=== PATIENT | female | born 1980 | race African-American/Black ===

== ENCOUNTER 2018-03-13 22:40 | Emergency (ER) | payer SELFPAY ==
[~2018-03-13] VITALS: Ht 167.6 cm; Wt 68.2 kg
[2018-03-13] MEDS ORDERED: SERT50TA12 PO (23:23)
[2018-03-13] MEDS ORDERED: QUET25TA PO (23:23)
[2018-03-13 23:37] LABS: BASOPHILS % (AUTO) 0.1 % (0.0-2.0); EOSINOPHILS % (AUTO) 2.9 % (1.0-6.0); HEMATOCRIT 29.1 % (36-46); HEMOGLOBIN 9.3 g/dL (12.0-16.0); LYMPHOCYTES # (AUTO) 3.1 K/uL (1.0-4.8); MEAN CORPUSCULAR HEMOGLOBIN 22.4 pg (26.0-34.0); MEAN CORPUSCULAR VOLUME 70 fL (80-100); MONOCYTES # (AUTO) 0.7 K/uL (0.1-1.0); MONOCYTES % (AUTO) 9.1 % (2.0-9.0); NEUTROPHILS # (AUTO) 3.2 K/uL (1.8-7.7); NEUTROPHILS % (AUTO) 44.9 % (40.0-70.0); PLATELET COUNT (AUTO) 338 K/uL (150-450); RED BLOOD CELL COUNT(AUTO) 4.16 MIL/uL (4.00-5.20); RED CELL DISTRIBUTION WIDTH 18.3 % (11.5-14.5)
[2018-03-13 23:46] LABS: ANION GAP 7 mmol/L (8-16); CALCIUM, TOTAL 8.4 mg/dL (8.8-10.5); CARBON DIOXIDE 29 mmol/L (22-29); CHLORIDE 104 mmol/L (98-107); CREATININE 0.84 mg/dL (0.60-1.30); GLOMERULAR FILTR. RATE CALC > 60 mL/min (>60); GLUCOSE,RANDOM 97 mg/dL (70-110); POTASSIUM 3.8 mmol/L (3.5-5.1); SODIUM SERUM 140 mmol/L (136-145); UREA NITROGEN, BLOOD 8 mg/dL (7-18)
[2018-03-13 23:52] LABS: ALANINE AMINOTRANSFERASE 23 U/L (12-78); ALBUMIN 3.7 g/dL (3.4-5.0); ALKALINE PHOSPHATASE 106 U/L (46-116); ASPARTATE AMINOTRANSFERASE 24 U/L (15-37); BILIRUBIN,TOTAL 0.2 mg/dL (0.1-1.0); TOTAL PROTEIN, SERUM 8.1 g/dL (6.4-8.2)
[2018-03-14 00:03] LABS: PLATELET MORPHOLOGY COMMENT GIANT PLTS PRESENT
[2018-03-14] MEDS ORDERED: HALOPERIDOL 5 MG TABLET PO ONE (00:15)
[2018-03-14 05:40] VITALS: BP 120/79
== END 2018-03-14 06:02 | disposition home or self-care (01) ==
LOC: EMS 22:41
DX: R45.851 Suicidal ideations (principal); R44.0 Auditory hallucinations; F10.129 Alcohol abuse with intoxication, unspecified; F17.210 Nicotine dependence, cigarettes, uncomplicated; Y90.8 Blood alcohol level of 240 mg/100 ml or more
CPT/HCPCS: 36415; 80053; 84703; 85025; 99285; G0480

== ENCOUNTER 2021-09-05 11:58 | Inpatient (IN) | payer MEDICAID ==
[~2021-09-05] VITALS: Ht 167.6 cm; Wt 68.0 kg
[~2021-09-05 11:58] MED LIST: QUET25TA PO; SERT-158 PO
[2021-09-05] MEDS ORDERED: SODIUM CHLORIDE 0.9% 1,000 ML IV ONE (13:30)
[2021-09-05 15:15] LABS: BASOPHILS % (AUTO) 0.2 % (0.0-2.0); EOSINOPHILS % (AUTO) 0.1 % (1.0-6.0); HEMOGLOBIN 10.5 g/dL (12.0-16.0); LYMPHOCYTES # (AUTO) 0.7 K/uL (1.0-4.8); LYMPHOCYTES % (AUTO) 8.1 % (22.0-44.0); MEAN CORPUSCULAR HEMOGLOBIN 23.8 pg (26.0-34.0); MEAN CORPUSCULAR HGB CONC 31.8 G/dL (31.0-37.0); MEAN CORPUSCULAR VOLUME 75 fL (80-100); MONOCYTES # (AUTO) 0.3 K/uL (0.1-1.0); MONOCYTES % (AUTO) 3.2 % (2.0-9.0); NEUTROPHILS # (AUTO) 7.9 K/uL (1.8-7.7); PLATELET COUNT (AUTO) 202 K/uL (150-450); RED BLOOD CELL COUNT(AUTO) 4.41 MIL/uL (4.00-5.20); RED CELL DISTRIBUTION WIDTH 19.6 % (11.5-14.5)
[2021-09-05 15:17] LABS: NEUTROPHILS % (AUTO) 88.4 % (40.0-70.0)
[2021-09-05 15:17] LABS: COVID AG,FIA SOURCE NASOPHARYNGEAL
[2021-09-05 15:29] LABS: ANION GAP 22 mmol/L (8-16); CALCIUM, TOTAL 8.8 mg/dL (8.8-10.5); CARBON DIOXIDE 19 mmol/L (22-29); CHLORIDE 94 mmol/L (98-107); CREATININE 0.83 mg/dL (0.60-1.30); GLOMERULAR FILTR. RATE CALC > 60 mL/min (>60); GLUCOSE,RANDOM 81 mg/dL (70-110); POTASSIUM 3.8 mmol/L (3.5-5.1); SODIUM SERUM 135 mmol/L (136-145); UREA NITROGEN, BLOOD 8 mg/dL (7-18)
[2021-09-05 15:40] LABS: ALANINE AMINOTRANSFERASE 52 U/L (12-78); ALBUMIN 3.6 g/dL (3.4-5.0); ALKALINE PHOSPHATASE 118 U/L (46-116); ASPARTATE AMINOTRANSFERASE 56 U/L (15-37); BILIRUBIN,TOTAL 0.9 mg/dL (0.1-1.0); HCG,QUANTITATIVE < 1 mIU/mL (0-6); TOTAL PROTEIN, SERUM 8.5 g/dL (6.4-8.2)
[2021-09-05 15:42] LABS: AMPHET/METH SCREEN,URINE POSITIVE (NEGATIVE); BARBITURATE SCREEN, URINE NEGATIVE (NEGATIVE); BENZODIAZEPINES SCREEN,URINE NEGATIVE (NEGATIVE); CANNABINOID SCREEN,URINE NEGATIVE (NEGATIVE); COCAINE SCREEN,URINE NEGATIVE (NEGATIVE); METHADONE SCREEN, URINE NEGATIVE (NEGATIVE); OPIATE SCREEN,URINE NEGATIVE (NEGATIVE)
[2021-09-05 15:45] LABS: PHENCYCLIDINE SCREEN,URINE NEGATIVE (NEGATIVE)
[2021-09-05] MEDS: LORazepam 2 MG TABLET PO PRN ×2 (17:20→21:23)
[2021-09-05 20:48] VITALS: BP 126/77
[2021-09-06 01:18] VITALS: BP 124/79
[2021-09-06 07:56] LABS: CHOL/HDL RATIO 2.2 (3.9-5.7)
[2021-09-06 08:50] VITALS: BP 112/67
[2021-09-06] MEDS: LORazepam 2 MG TABLET PO PRN ×2 (12:24→19:56)
[2021-09-06] MEDS ORDERED: ACETAMINOPHEN 650 MG/20.3 ML SOLUTION UDCUP PO PRN (12:45)
[2021-09-06] MEDS ORDERED: ACETAMINOPHEN 325 MG TABLET PO PRN ×2 (13:45→14:00)
[2021-09-06] MEDS ORDERED: CloNIDine HCL 0.1 MG TABLET PO PRN (13:45)
[2021-09-06] MEDS ORDERED: LOPERAMIDE HCL 2 MG CAPSULE PO PRN (13:45)
[2021-09-06] MEDS ORDERED: ONDANSETRON HCL 4 MG TABLET PO PRN (13:45)
[2021-09-06] MEDS ORDERED: MAG HYDROX/AL HYDROX/SIMETH ES 30 ML SUSPENSION UDCUP PO PRN (13:45)
[2021-09-06] MEDS ORDERED: ALBUTEROL SULFATE HFA 90 MCG/PUFF 8 GM INHALER IH PRN (13:45)
[2021-09-06] MEDS ORDERED: GuaiFENesin/D-METHORPHAN [SUGAR-FREE] 200-20MG/10 ML SYRUP UDCUP PO PRN (13:45)
[2021-09-06] MEDS ORDERED: DOCUSATE SODIUM 100 MG CAPSULE PO PRN (13:45)
[2021-09-06] MEDS ORDERED: MAGNESIUM HYDROXIDE SUSPENSION 30 ML UDCUP PO PRN (13:45)
[2021-09-06] MEDS ORDERED: PETROLATUM,WHITE 28 GM JELLY TP PRN (13:45)
[2021-09-06] MEDS ORDERED: NICOTINE 14 MG/24 HOUR PATCH TD PRN (13:45)
[2021-09-06] MEDS: IBUPROFEN 400 MG TABLET PO PRN (15:58)
[2021-09-06] MEDS ORDERED: IBUPROFEN 400 MG TABLET PO SCH (16:00)
[2021-09-06 16:02] VITALS: BP 108/65
[2021-09-06 19:56] VITALS: BP 117/79
[2021-09-06] MEDS: MIRTAZAPINE 15 MG TABLET PO SCH (20:06)
[2021-09-07 00:55] VITALS: BP 118/69
[2021-09-07 08:34] VITALS: BP 107/60
[2021-09-07] MEDS: LORazepam 2 MG TABLET PO PRN ×2 (13:27→20:32)
[2021-09-07 16:29] VITALS: BP 107/70
[2021-09-07] MEDS: MIRTAZAPINE 15 MG TABLET PO SCH (20:25)
[2021-09-08 00:50] VITALS: BP 123/74
[2021-09-08 08:17] VITALS: BP 113/78
[2021-09-08] MEDS: IBUPROFEN 400 MG TABLET PO PRN ×2 (10:08→20:34)
[2021-09-08] MEDS: LORazepam 2 MG TABLET PO PRN (10:08)
[2021-09-08] MEDS: GABAPENTIN 100 MG CAPSULE PO SCH ×3 (12:54→20:33)
[2021-09-08 16:28] VITALS: BP 112/64
[2021-09-08] MEDS: MIRTAZAPINE 15 MG TABLET PO SCH (20:33)
[2021-09-08 20:34] VITALS: BP 117/72
[2021-09-08] MEDS: ZOLPIDEM TARTRATE 10 MG TABLET PO PRN (20:46)
[2021-09-09 01:21] VITALS: BP 105/61
[2021-09-09 08:32] VITALS: BP 110/70
[2021-09-09] MEDS: GABAPENTIN 100 MG CAPSULE PO SCH ×3 (09:46→20:31)
[2021-09-09] MEDS: HALOPERIDOL 5 MG TABLET PO PRN ×2 (10:07→16:51)
[2021-09-09] MEDS: LORazepam 2 MG TABLET PO PRN ×2 (10:08→16:16)
[2021-09-09 16:26] VITALS: BP 114/75
[2021-09-09] MEDS: MIRTAZAPINE 15 MG TABLET PO SCH (20:31)
[2021-09-09] MEDS: ZOLPIDEM TARTRATE 10 MG TABLET PO PRN (20:38)
[2021-09-10 00:24] VITALS: BP 117/78
[2021-09-10] MEDS: LORazepam 2 MG TABLET PO PRN ×2 (05:49→12:09)
[2021-09-10 08:24] VITALS: BP 110/72
[2021-09-10] MEDS: GABAPENTIN 100 MG CAPSULE PO SCH ×3 (09:22→20:46)
[2021-09-10 09:51] LABS: GLUCOMETER DEV NAME(LOC) POC.BV
[2021-09-10] MEDS: HALOPERIDOL 5 MG TABLET PO PRN (15:35)
[2021-09-10 16:25] VITALS: BP 121/79
[2021-09-10] MEDS: MIRTAZAPINE 15 MG TABLET PO SCH (20:46)
[2021-09-10] MEDS: ZOLPIDEM TARTRATE 10 MG TABLET PO PRN (20:46)
[2021-09-11 00:57] VITALS: BP 125/78
[2021-09-11] MEDS: LORazepam 2 MG TABLET PO PRN (04:27)
[2021-09-11] MEDS: GABAPENTIN 100 MG CAPSULE PO SCH (08:54)
[2021-09-11] MEDS ORDERED: MIRT-89 PO (09:13)
[2021-09-11 10:21] VITALS: BP 134/75
== END 2021-09-11 12:10 | disposition home or self-care (01) | DRG 751 ==
LOC: EMS 12:01 → B2S 16:31
PROVIDERS: ADMIT Psychiatry & Neurology Psychiatry; ATTEND Psychiatry & Neurology Psychiatry
DX: F33.2 Major depressive disorder, recurrent severe without psychotic features (principal); E87.1 Hypo-osmolality and hyponatremia; R45.851 Suicidal ideations; F10.10 Alcohol abuse, uncomplicated; F15.20 Other stimulant dependence, uncomplicated; F41.9 Anxiety disorder, unspecified; J45.909 Unspecified asthma, uncomplicated; D64.9 Anemia, unspecified; Z59.00 Homelessness unspecified; Z79.899 Other long term (current) drug therapy; Z81.8 Family history of other mental and behavioral disorders; Z87.891 Personal history of nicotine dependence; Z91.51 Personal history of suicidal behavior; Z20.822 Contact with and (suspected) exposure to COVID-19
CPT/HCPCS: 80053; 80061; 84702; 85025; 87081; 99285; G0480; J7030